=== PATIENT | male | born 1975 | race Caucasian/White ===

== ENCOUNTER 2020-10-27 01:10 | Emergency (ER) | payer MEDICAID ==
[~2020-10-27] VITALS: Ht 180.3 cm; Wt 115.7 kg
[2020-10-27 01:17] VITALS: BP 134/90
--- NOTE | 2020-10-27 01:21 | NUR ---
Kathleen dougherty in [facility] - 10/27/20 at 0121 by VANE PT TAKEN TO BED 7
--- NOTE | 2020-10-27 01:21 | NUR ---
To ED bed 07.
--- NOTE | 2020-10-27 01:33 | NUR ---
see complete assessment.
--- NOTE | 2020-10-27 01:33 | NUR ---
Dr. Pickens at bedside for MSE.
--- NOTE | 2020-10-27 01:37 | NUR ---
provided water for pt. states will try to provide urine .
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
--- NOTE | 2020-10-27 02:00 | NUR ---
URINAL SAMPLE COLLECTED AND HANDED TO LAB.
[2020-10-27 02:24] VITALS: BP 134/90
--- NOTE | 2020-10-27 02:24 | NUR ---
Patient discharged with v/s stable. Written and verbal after care instructions given and explained. Patient alert, oriented and verbalized understanding of instructions. Ambulatory with steady gait. All questions addressed prior to discharge. ID band removed. Patient advised to follow up with PMD. Rx of CLOTRIMAZOLE, ACYCLOVIR, AND NORCO given. Patient educated on indication of medication including possible reaction and side effects. Opportunity to ask questions provided and answered.
== END 2020-10-27 02:24 | disposition home or self-care (01) ==
LOC: MED 01:10
DX: A64 Unspecified sexually transmitted disease (principal); B00.9 Herpesviral infection, unspecified; E11.9 Type 2 diabetes mellitus without complications; Z98.890 Other specified postprocedural states
CPT/HCPCS: 36415; 87491; 99283

== ENCOUNTER 2023-10-15 08:56 | Emergency (ER) | payer MEDICAID ==
[~2023-10-15] VITALS: Ht 180.3 cm; Wt 112.9 kg
[2023-10-15 09:00] VITALS: BP 129/84; PULSE 104; RESP 20; TEMP 96.7; O2SAT 100
[2023-10-15] MEDS ORDERED: PERM5CRE3 TP (10:40)
[2023-10-15] MEDS ORDERED: PRED20TA5 PO (10:40)
[2023-10-15] MEDS ORDERED: ATA25 PO (10:40)
[2023-10-15 10:57] VITALS: BP 129/84; PULSE 99; RESP 20; TEMP 96.7; O2SAT 100
== END 2023-10-15 10:57 | disposition home or self-care (01) ==
LOC: MED 08:56
DX: R21 Rash and other nonspecific skin eruption (principal); E11.9 Type 2 diabetes mellitus without complications; Z79.899 Other long term (current) drug therapy
CPT/HCPCS: 99283

== ENCOUNTER 2024-01-21 09:50 | Emergency (ER) | payer MEDICAID ==
[~2024-01-21] VITALS: Ht 180.3 cm; Wt 113.4 kg
[~2024-01-21 09:50] MED LIST: ATA25 PO; PERM5CRE3 TP; PRED20TA5 PO
[2024-01-21 09:57] VITALS: BP 140/71; PULSE 83; RESP 20; TEMP 98.1; O2SAT 99
[2024-01-21] MEDS ORDERED: FLONAS NS (10:26)
[2024-01-21] MEDS ORDERED: SUD30 PO (10:26)
== END 2024-01-21 10:38 | disposition home or self-care (01) ==
LOC: MED 09:50
DX: H91.93 Unspecified hearing loss, bilateral (principal); R09.81 Nasal congestion; R05.9 Cough, unspecified; R09.89 Other specified symptoms and signs involving the circulatory and respiratory systems
CPT/HCPCS: 99282